=== PATIENT | male | born 1965 | race Caucasian/White ===

== ENCOUNTER → 2023-12-15 | Outpatient (CLI) | payer BC ==
--- NOTE | 2023-12-15 11:06 | US ---
EXAMINATION TYPE: US arterial LE single level DATE OF EXAM: 12/15/2023 9:11 AM CLINICAL INDICATION: Male, 58 years old with history of R09.89 SIGNS INVOLVING THE CIRC AND RESP SYST ; coldness bilateral legs at night History of: Smoker: current Hypertension: no Diabetic: no Hyperlipidemia: yes TIA/CVA: no Previous Vascular Surgery: no IA: no Vascular Ulcers: no Claudication: no Gangrene: no Doppler Waveforms: Right: Triphasic Left: Triphasic Right Brachial Pressure: 110 Left Brachial Pressure: 124 Ankle-Brachial Indices: Right: 1.06 Left: 1.10 (Vessel hardening > 1.4; Normal 0.9 - 1.4, Moderate 0.7 - 0.9, Severe 0.5-0.7) IMPRESSION: No evidence of peripheral artery disease of the lower extremities
== END | disposition home or self-care (01) ==
LOC: RADUSWWP 08:53
PROVIDERS: ATTEND Family Medicine
DX: R09.89 Other specified symptoms and signs involving the circulatory and respiratory systems (principal); E78.5 Hyperlipidemia, unspecified; R20.9 Unspecified disturbances of skin sensation
CPT/HCPCS: 93922